=== PATIENT | male | born 2000 | race Two or more races ===

== ENCOUNTER 2023-11-29 21:39 | Emergency (ER) | payer MEDICAID ==
[~2023-11-29] VITALS: Ht 167.6 cm; Wt 95.0 kg
[2023-11-29 21:49] VITALS: TEMP 98.2
[2023-11-29 22:22] LABS: BASOPHILS % (AUTO) 0.3 % (0.0-2.0); EOSINOPHILS % (AUTO) 1.3 % (1.0-6.0); HEMATOCRIT 43.1 % (41-53); HEMOGLOBIN 14.6 g/dL (13.5-17.5); LYMPHOCYTES # (AUTO) 1.4 K/uL (1.0-4.8); LYMPHOCYTES % (AUTO) 11.9 % (22.0-44.0); MEAN CORPUSCULAR HEMOGLOBIN 28.1 pg (26.0-34.0); MEAN CORPUSCULAR HGB CONC 33.7 G/dL (31.0-37.0); MEAN CORPUSCULAR VOLUME 83 fL (80-100); MONOCYTES # (AUTO) 1.1 K/uL (0.1-1.0); MONOCYTES % (AUTO) 8.8 % (2.0-9.0); NEUTROPHILS # (AUTO) 9.4 K/uL (1.8-7.7); NEUTROPHILS % (AUTO) 77.7 % (40.0-70.0); PLATELET COUNT (AUTO) 421 K/uL (150-450); RED BLOOD CELL COUNT(AUTO) 5.18 MIL/uL (4.50-5.90); RED CELL DISTRIBUTION WIDTH 15.6 % (11.5-14.5); WHITE BLOOD COUNT (AUTO) 12.1 K/uL (4.5-11.0)
[2023-11-29 22:34] LABS: ANION GAP 9 mmol/L (8-16); CARBON DIOXIDE 28 mmol/L (22-29); CHLORIDE 99 mmol/L (98-107); CREATININE 0.94 mg/dL (0.60-1.30); GLOMERULAR FILTR. RATE CALC > 60 mL/min (>60); GLUCOSE,RANDOM 139 mg/dL (70-110); LIPASE 46 U/L (16-77); POTASSIUM 4.1 mmol/L (3.5-5.1); SODIUM SERUM 136 mmol/L (136-145); UREA NITROGEN, BLOOD 10 mg/dL (7-18)
[2023-11-29 22:36] LABS: CALCIUM, TOTAL 9.5 mg/dL (8.8-10.5)
[2023-11-29] MEDS: ONDANSETRON HCL 4 MG/2 ML VIAL IVP ONE (22:51)
[2023-11-29] MEDS: KETOROLAC TROMETHAMINE 30 MG/ML VIAL IVP ONE (22:52)
[2023-11-29 23:04] VITALS: BP 132/71; PULSE 64; RESP 18
[2023-11-29 23:08] LABS: ALANINE AMINOTRANSFERASE 32 U/L (12-78); ALBUMIN 3.4 g/dL (3.4-5.0); ALKALINE PHOSPHATASE 77 U/L (46-116); ASPARTATE AMINOTRANSFERASE 24 U/L (15-37); BILIRUBIN,TOTAL 0.3 mg/dL (0.1-1.0); TOTAL PROTEIN, SERUM 8.8 g/dL (6.4-8.2)
[2023-11-30] MEDS ORDERED: IBUP-1492 PO (00:46)
[2023-11-30] MEDS ORDERED: ONDA-104 PO (00:46)
== END 2023-11-30 00:57 | disposition home or self-care (01) ==
LOC: EMS 21:39
DX: K80.20 Calculus of gallbladder without cholecystitis without obstruction (principal)
CPT/HCPCS: 99285; 96374; 96375; 80048; 80076; 83690; 85025; 36415; 76700; J1885; J2405

== ENCOUNTER 2024-02-14 00:42 | Emergency (ER) | payer SELFPAY ==
[~2024-02-14] VITALS: Ht 167.6 cm; Wt 77.0 kg
[~2024-02-14 00:42] MED LIST: IBUP-1492 PO; ONDA-104 PO
[2024-02-14] MEDS: PHENOBARB/HYOSCY/ATROPINE/SCOP 5 ML UDCUP ELIXIR PO ONE (02:31)
[2024-02-14] MEDS: OMEPRAZOLE 20 MG CAPSULE PO ONE (02:31)
[2024-02-14] MEDS: ONDANSETRON HCL 4 MG/2 ML VIAL IM ONE (02:31)
[2024-02-14] MEDS: MAG HYDROX/ALUMINUM HYD/SIMETH ES 30 ML SUSPENSION UDCUP PO ONE (02:31)
[2024-02-14] MEDS: MORPHINE SULFATE 4 MG/ML SYRINGE IM ONE (02:32)
[2024-02-14 03:30] VITALS: BP 133/78; PULSE 66; RESP 20; TEMP 97.3
[2024-02-14 03:30] LABS: APPEARANCE,URINE CLEAR (CLEAR); BILIRUBIN,URINE NEGATIVE (NEGATIVE); COLOR,URINE YELLOW (YELLOW); GLUCOSE, URINE (UA) NEGATIVE (NEGATIVE); KETONES,URINE =>150 mg/dL (NEGATIVE); LEUKOCYTE ESTERASE ,URINE NEGATIVE (NEGATIVE); NITRATE,URINE NEGATIVE (NEGATIVE); OCCULT BLOOD,URINE NEGATIVE (NEGATIVE); PROTEIN,URINE 30-70 mg/dL (NEGATIVE); SPECIFIC GRAVITIY, URINE 1.033 (1.003-1.030)
[2024-02-14 04:07] LABS: BASOPHILS % (AUTO) 0.2 % (0.0-2.0); HEMATOCRIT 47.5 % (41-53); HEMOGLOBIN 15.6 g/dL (13.5-17.5); LYMPHOCYTES # (AUTO) 1.5 K/uL (1.0-4.8); LYMPHOCYTES % (AUTO) 12.3 % (22.0-44.0); MEAN CORPUSCULAR HGB CONC 32.8 G/dL (31.0-37.0); MEAN CORPUSCULAR VOLUME 85 fL (80-100); MONOCYTES # (AUTO) 0.7 K/uL (0.1-1.0); MONOCYTES % (AUTO) 5.4 % (2.0-9.0); NEUTROPHILS # (AUTO) 9.9 K/uL (1.8-7.7); NEUTROPHILS % (AUTO) 81.1 % (40.0-70.0); PLATELET COUNT (AUTO) 449 K/uL (150-450); RED BLOOD CELL COUNT(AUTO) 5.58 MIL/uL (4.50-5.90); RED CELL DISTRIBUTION WIDTH 15.5 % (11.5-14.5); WHITE BLOOD COUNT (AUTO) 12.2 K/uL (4.5-11.0)
[2024-02-14 04:12] LABS: ANION GAP 9 mmol/L (8-16); CALCIUM, TOTAL 9.8 mg/dL (8.8-10.5); CARBON DIOXIDE 30 mmol/L (22-29); CHLORIDE 97 mmol/L (98-107); CREATININE 0.85 mg/dL (0.60-1.30); GLOMERULAR FILTR. RATE CALC > 60 mL/min (>60); GLUCOSE,RANDOM 121 mg/dL (70-110); LIPASE 44 U/L (16-77); POTASSIUM 4.5 mmol/L (3.5-5.1); SODIUM SERUM 136 mmol/L (136-145); UREA NITROGEN, BLOOD 10 mg/dL (7-18)
[2024-02-14 04:18] LABS: ALBUMIN 3.9 g/dL (3.4-5.0); BILIRUBIN,DIRECT 0.2 mg/dL (0.00-0.20); BILIRUBIN,TOTAL 0.6 mg/dL (0.1-1.0); TOTAL PROTEIN, SERUM 9.4 g/dL (6.4-8.2)
[2024-02-14] MEDS ORDERED: ACET-2080 PO (04:20)
[2024-02-14] MEDS ORDERED: OMEP20 PO (04:20)
[2024-02-14] MEDS ORDERED: MAG30ORA11 PO (04:20)
[2024-02-14] MEDS ORDERED: ONDA-104 PO (04:20)
== END 2024-02-14 07:41 | disposition home or self-care (01) ==
LOC: EMS 00:43
DX: K29.70 Gastritis, unspecified, without bleeding (principal); F12.90 Cannabis use, unspecified, uncomplicated
CPT/HCPCS: 99284; 80048; 80076; 81003; 83690; 85025; 36415; 96372; J2270; J2405

== ENCOUNTER 2024-07-15 17:23 | Inpatient (IN) | payer SELFPAY ==
[~2024-07-15] VITALS: Ht 167.6 cm; Wt 105.0 kg
[~2024-07-15 17:23] MED LIST changes: +ACET-2080 PO; +MAG30ORA11 PO; +OMEP20 PO
[2024-07-15 17:56] LABS: BASOPHILS % (AUTO) 0.1 % (0.0-2.0); EOSINOPHILS % (AUTO) 0.5 % (1.0-6.0); HEMATOCRIT 42.9 % (41-53); HEMOGLOBIN 14.5 g/dL (13.5-17.5); LYMPHOCYTES # (AUTO) 1.3 K/uL (1.0-4.8); LYMPHOCYTES % (AUTO) 9.3 % (22.0-44.0); MEAN CORPUSCULAR HEMOGLOBIN 27.7 pg (26.0-34.0); MEAN CORPUSCULAR HGB CONC 33.8 G/dL (31.0-37.0); MEAN CORPUSCULAR VOLUME 82 fL (80-100); MONOCYTES # (AUTO) 0.9 K/uL (0.1-1.0); MONOCYTES % (AUTO) 6.5 % (2.0-9.0); NEUTROPHILS % (AUTO) 83.6 % (40.0-70.0); PLATELET COUNT (AUTO) 394 K/uL (150-450); RED BLOOD CELL COUNT(AUTO) 5.23 MIL/uL (4.50-5.90); RED CELL DISTRIBUTION WIDTH 14.1 % (11.5-14.5); WHITE BLOOD COUNT (AUTO) 14.3 K/uL (4.5-11.0)
[2024-07-15 18:03] LABS: ANION GAP 6 mmol/L (8-16); CALCIUM, TOTAL 9.4 mg/dL (8.8-10.5); CARBON DIOXIDE 30 mmol/L (22-29); CHLORIDE 100 mmol/L (98-107); CREATININE 0.89 mg/dL (0.60-1.30); GLOMERULAR FILTR. RATE CALC > 60 mL/min (>60); GLUCOSE,RANDOM 115 mg/dL (70-110); POTASSIUM 4.1 mmol/L (3.5-5.1); SODIUM SERUM 136 mmol/L (136-145); UREA NITROGEN, BLOOD 15 mg/dL (7-18)
[2024-07-15 18:09] LABS: ALANINE AMINOTRANSFERASE 35 U/L (12-78); ALBUMIN 3.8 g/dL (3.4-5.0); ALKALINE PHOSPHATASE 83 U/L (46-116); ASPARTATE AMINOTRANSFERASE 22 U/L (15-37); BILIRUBIN,TOTAL 0.5 mg/dL (0.1-1.0); LIPASE 51 U/L (16-77); TOTAL PROTEIN, SERUM 8.3 g/dL (6.4-8.2)
[2024-07-15 23:43] LABS: BASOPHILS % (AUTO) 0.3 % (0.0-2.0); EOSINOPHILS % (AUTO) 0.1 % (1.0-6.0); HEMATOCRIT 43.2 % (41-53); HEMOGLOBIN 14.7 g/dL (13.5-17.5); LYMPHOCYTES # (AUTO) 1.6 K/uL (1.0-4.8); LYMPHOCYTES % (AUTO) 11.7 % (22.0-44.0); MEAN CORPUSCULAR HEMOGLOBIN 27.8 pg (26.0-34.0); MEAN CORPUSCULAR VOLUME 82 fL (80-100); MONOCYTES # (AUTO) 1.1 K/uL (0.1-1.0); MONOCYTES % (AUTO) 7.9 % (2.0-9.0); NEUTROPHILS # (AUTO) 10.8 K/uL (1.8-7.7); PLATELET COUNT (AUTO) 426 K/uL (150-450); RED BLOOD CELL COUNT(AUTO) 5.29 MIL/uL (4.50-5.90); RED CELL DISTRIBUTION WIDTH 14.2 % (11.5-14.5); WHITE BLOOD COUNT (AUTO) 13.6 K/uL (4.5-11.0)
[2024-07-15 23:49] LABS: ANION GAP 12 mmol/L (8-16); CALCIUM, TOTAL 9.5 mg/dL (8.8-10.5); CARBON DIOXIDE 25 mmol/L (22-29); CHLORIDE 98 mmol/L (98-107); CREATININE 0.83 mg/dL (0.60-1.30); GLOMERULAR FILTR. RATE CALC > 60 mL/min (>60); GLUCOSE,RANDOM 102 mg/dL (70-110); POTASSIUM 3.2 mmol/L (3.5-5.1); SODIUM SERUM 135 mmol/L (136-145); UREA NITROGEN, BLOOD 15 mg/dL (7-18)
[2024-07-15] MEDS: SODIUM CHLORIDE 0.9% 1,000 ML IV ONE (23:52)
[2024-07-15] MEDS: FAMOTIDINE 20 MG/2 ML VIAL IVP ONE (23:52)
[2024-07-15] MEDS: MORPHINE SULFATE 2 MG/ML SYRINGE IVP ONE (23:53)
[2024-07-15 23:55] LABS: ALANINE AMINOTRANSFERASE 103 U/L (12-78); ALBUMIN 3.9 g/dL (3.4-5.0); ALKALINE PHOSPHATASE 105 U/L (46-116); ASPARTATE AMINOTRANSFERASE 99 U/L (15-37); BILIRUBIN,TOTAL 1.5 mg/dL (0.1-1.0); LIPASE 50 U/L (16-77); TOTAL PROTEIN, SERUM 8.5 g/dL (6.4-8.2)
[2024-07-16] MEDS: MORPHINE SULFATE 2 MG/ML SYRINGE IVP ONE ×3 (02:04→05:48)
[2024-07-16] MEDS: PIPERACILLIN/TAZO 3.375 GM/D5W 50 ML IV ONE (02:04)
[2024-07-16 08:41] LABS: APPEARANCE,URINE CLEAR (CLEAR); BILIRUBIN,URINE NEGATIVE (NEGATIVE); COLOR,URINE YELLOW (YELLOW); GLUCOSE, URINE (UA) NEGATIVE (NEGATIVE); KETONES,URINE NEGATIVE (NEGATIVE); LEUKOCYTE ESTERASE ,URINE NEGATIVE (NEGATIVE); NITRATE,URINE NEGATIVE (NEGATIVE); OCCULT BLOOD,URINE NEGATIVE (NEGATIVE); PH,URINE 6.5 (5.0-8.0); PROTEIN,URINE TRACE mg/dL (NEGATIVE); SPECIFIC GRAVITIY, URINE 1.026 (1.003-1.030); UROBILINOGEN,URINE <=1.0 mg/dL (<=1.0)
[2024-07-16 10:57] VITALS: BP 135/93; PULSE 63; RESP 18; TEMP 98.2; O2SAT 0
[2024-07-16] MEDS ORDERED: IPRATROPIUM BROMIDE 0.5 MG/2.5 ML NEB SOLUTION NEB PRN (13:45)
[2024-07-16] MEDS ORDERED: BISACODYL 10 MG RECTAL RECTAL SUPPOSITORY PR PRN (13:45)
[2024-07-16] MEDS ORDERED: ZOLPIDEM TARTRATE 5 MG TABLET PO PRN (13:45)
[2024-07-16] MEDS ORDERED: ALBUTEROL SULFATE 2.5 MG/0.5 ML NEB SOLUTION NEB PRN (13:45)
[2024-07-16] MEDS ORDERED: ONDANSETRON HCL 4 MG/2 ML VIAL IVP PRN (13:45)
[2024-07-16] MEDS ORDERED: MAGNESIUM HYDROXIDE SUSPENSION 30 ML UDCUP PO PRN (13:45)
[2024-07-16] MEDS ORDERED: ACETAMINOPHEN 325 MG TABLET PO PRN (13:45)
[2024-07-16] MEDS: POTASSIUM CHLORIDE 20 MEQ ER TABLET PO ONE (14:11)
[2024-07-16] MEDS: RINGERS SOLUTION,LACTATED 1,000 ML IV SCH (14:11)
[2024-07-16] MEDS: MORPHINE SULFATE 2 MG/ML SYRINGE IVP PRN (14:12)
[2024-07-16] MEDS: PIPERACILLIN/TAZO 3.375 GM/D5W 50 ML IV SCH (14:37)
[2024-07-16] MEDS: HEPARIN SODIUM,PORCINE 5,000 UNITS/ML VIAL SQ SCH (16:00)
[2024-07-16] MEDS ORDERED: SODIUM CHLORIDE 0.9% 500 ML IV ONE (19:44)
[2024-07-16] MEDS: DOCUSATE SODIUM 100 MG CAPSULE PO SCH (20:06)
[2024-07-16 21:29] VITALS: BP 127/80; PULSE 53; RESP 18; TEMP 98.6; O2SAT 100
[2024-07-17 03:30] VITALS: BP 132/71; PULSE 55; RESP 20; TEMP 97.7; O2SAT 99
[2024-07-17] MEDS ORDERED: PROPOFOL 1% 20 ML VIAL IVP ONE (07:00)
[2024-07-17] MEDS ORDERED: ONDANSETRON HCL 4 MG/2 ML VIAL ONE (07:00)
[2024-07-17] MEDS ORDERED: LIDOCAINE/PF 2% 5 ML VIAL ONE (07:00)
[2024-07-17] MEDS ORDERED: SUGAMMADEX SODIUM 200 MG/2 ML VIAL IVP ONE (07:00)
[2024-07-17] MEDS ORDERED: GLYCOPYRROLATE 0.2 MG/ML VIAL ONE (07:00)
[2024-07-17] MEDS ORDERED: DEXAMETHASONE SOD PHOS 4 MG/ML VIAL ONE (07:00)
[2024-07-17] MEDS ORDERED: KETOROLAC TROMETHAMINE 60 MG/2 ML VIAL IM ONE (07:00)
[2024-07-17] MEDS ORDERED: ROCURONIUM BROMIDE 10 MG/ML 5 ML VIAL ONE (07:00)
[2024-07-17] MEDS ORDERED: CeFAZolin SODIUM 1 GM VIAL ONE (07:00)
[2024-07-17] MEDS ORDERED: FentaNYL CITRATE PF 100 MCG/2 ML VIAL ONE ×2 (07:00→11:20)
[2024-07-17] MEDS ORDERED: MIDAZOLAM HCL 2 MG/2 ML VIAL ONE (07:00)
[2024-07-17] MEDS: PANTOPRAZOLE SODIUM 40 MG/VIAL IVP SCH (08:40)
[2024-07-17 09:00] VITALS: BP 140/96; PULSE 62; RESP 18; TEMP 98.6; O2SAT 100
[2024-07-17] MEDS ORDERED: RINGERS SOLUTION,LACTATED 1,000 ML IV ONE (09:24)
[2024-07-17] MEDS ORDERED: SODIUM CHLORIDE 0.9% 0 ML ONE (10:01)
[2024-07-17] MEDS: BUPIVACAINE 0.25%/EPI 1:200,000/PF 10 ML VIAL ONE (10:43)
[2024-07-17] MEDS ORDERED: KETOROLAC TROMETHAMINE 30 MG/ML VIAL ONE (11:15)
[2024-07-17] MEDS: FentaNYL CITRATE PF 100 MCG/2 ML VIAL IVP PRN (11:21)
[2024-07-17] MEDS: HYDROmorphone HCL 2 MG/ML SYRINGE IVP PRN (11:28)
[2024-07-17] MEDS ORDERED: FentaNYL CITRATE PF 100 MCG/2 ML VIAL IVP ONE (11:30)
[2024-07-17 12:03] VITALS: BP 142/71; PULSE 70; RESP 17; TEMP 98.6; O2SAT 99
[2024-07-17 20:12] VITALS: BP 130/86; PULSE 81; RESP 18; TEMP 98.2; O2SAT 98
[2024-07-18] MEDS ORDERED: ONDANSETRON HCL 4 MG/2 ML VIAL ONE (06:24)
[2024-07-18] MEDS ORDERED: SUGAMMADEX SODIUM 200 MG/2 ML VIAL IVP ONE (06:24)
[2024-07-18] MEDS ORDERED: ROCURONIUM BROMIDE 10 MG/ML 5 ML VIAL ONE (06:24)
[2024-07-18] MEDS ORDERED: PROPOFOL 1% 20 ML VIAL IVP ONE (06:24)
[2024-07-18] MEDS ORDERED: GLUCAGON,HUMAN RECOMBINANT 1 MG VIAL ONE (06:24)
[2024-07-18] MEDS ORDERED: MIDAZOLAM HCL 2 MG/2 ML VIAL ONE (06:24)
[2024-07-18] MEDS ORDERED: DEXAMETHASONE SOD PHOS 4 MG/ML VIAL ONE (06:24)
[2024-07-18] MEDS ORDERED: LIDOCAINE/PF 2% 5 ML VIAL ONE (06:24)
[2024-07-18] MEDS ORDERED: FentaNYL CITRATE PF 100 MCG/2 ML VIAL ONE (06:24)
[2024-07-18 09:27] VITALS: BP 130/73; PULSE 54; RESP 20; TEMP 97.3; O2SAT 98
[2024-07-18] MEDS ORDERED: IOTHALAMATE MEGLUMINE 600 MG/ML 50 ML VIAL IVP ONE (10:03)
[2024-07-18] MEDS ORDERED: SODIUM CHLORIDE 0.9% 1,000 ML ONE (13:19)
[2024-07-18] MEDS ORDERED: EPINEPHrine 1:10,000 [1 MG/10 ML] SYRINGE ONE (15:35)
[2024-07-18] MEDS ORDERED: FLUMAZENIL 0.1 MG/ML 5 ML VIAL IVP ONE (15:35)
[2024-07-18] MEDS ORDERED: NALOXONE HCL 0.4 MG/ML VIAL ONE (15:35)
[2024-07-18] MEDS ORDERED: DiphenhydrAMINE HCL 50 MG/ML VIAL ONE (15:36)
[2024-07-18] MEDS ORDERED: ATROPINE SULFATE 0.1 MG/ML 10 ML SYRINGE IVP ONE (15:36)
[2024-07-18] MEDS ORDERED: SODIUM TETRADECYL SULFATE 3% 60 MG/2 ML VIAL IVP ONE (15:36)
[2024-07-18] MEDS ORDERED: MEPERIDINE-PF 25 MG/ML VIAL IVP PRN (18:00)
[2024-07-18] MEDS ORDERED: FentaNYL CITRATE PF 100 MCG/2 ML VIAL IVP PRN (18:00)
[2024-07-18] MEDS ORDERED: HYDROmorphone HCL 2 MG/ML SYRINGE IVP PRN (18:00)
[2024-07-18 19:23] VITALS: BP 134/70; PULSE 58; RESP 18; TEMP 98.2; O2SAT 100
[2024-07-18] MEDS ORDERED: OXYGEN THERAPY IH SCH (20:00)
[2024-07-18] MEDS: HYDROCODONE/ACETAMINOPHEN 5-325 MG TABLET PO PRN (21:57)
[2024-07-19 04:28] VITALS: BP 131/75; PULSE 54; RESP 18; TEMP 97.6; O2SAT 100
[2024-07-19 08:20] VITALS: BP 153/84; PULSE 53; RESP 18; TEMP 97.7; O2SAT 100
[2024-07-19] MEDS ORDERED: AMOX-457 PO (15:19)
[2024-07-19 15:50] VITALS: BP 139/76; PULSE 79; RESP 20; TEMP 98.5; O2SAT 100
== END 2024-07-19 17:35 | disposition home or self-care (01) | DRG 419 ==
LOC: EMS 17:23 → EDH 07-16 06:17 → UNDOADMIN 07-16 08:04 → 4E 07-16 09:30 → EDH 07-16 09:30
PROVIDERS: ADMIT Hospitalist; ATTEND Hospitalist
PROC: 0FT44ZZ Resection of Gallbladder, Percutaneous Endoscopic Approach (ICD-10-PCS; principal; 2024-07-17 10:15)
PROC: 0FC98ZZ Extirpation of Matter from Common Bile Duct, Via Natural or Artificial Opening Endoscopic (ICD-10-PCS; 2024-07-18)
PROC: BF101ZZ Fluoroscopy of Bile Ducts using Low Osmolar Contrast (ICD-10-PCS; 2024-07-18)
DX: K80.62 Calculus of gallbladder and bile duct with acute cholecystitis without obstruction (principal); K82.8 Other specified diseases of gallbladder
CPT/HCPCS: 74181; 76705; 80048; 80076; 81003; 83690; 84132; 85025; 87040; 88304; 99285; G0378; J0171; J0461; J0690; J1100; J1171; J1200; J1610; J1644; J1885; J2250; J2270; J2310; J2405; J2470; J2543; J2704; J3010; J3490; J7030; J7040; J7120; Q9961

== ENCOUNTER 2025-02-01 15:03 | Emergency (ER) | payer MEDICAID, OTHER ==
[~2025-02-01] VITALS: Ht 170.2 cm; Wt 81.8 kg
[~2025-02-01 15:03] MED LIST changes: +AMOX-457 PO; +OMEP-148 PO; -OMEP20 PO
[2025-02-01 15:11] VITALS: TEMP 98
[2025-02-01] MEDS: BACITRACIN 0.9 GM PACKET OINTMENT TP ONE (16:59)
[2025-02-01] MEDS: LIDOCAINE 1% 10 ML VIAL SQ ONE (16:59)
[2025-02-01] MEDS: CEPHALEXIN MONOHYDRATE 500 MG CAPSULE PO ONE (16:59)
[2025-02-01] MEDS: PERTUSS(ACELL),DIPH,TET/PF 0.5 ML SYRINGE [ADULT] IM. ONE (17:01)
[2025-02-01] MEDS ORDERED: DOXY-354 PO (17:46)
[2025-02-01] MEDS ORDERED: ACET-2080 PO (17:46)
[2025-02-01] MEDS ORDERED: CEPH-558 PO (17:46)
[2025-02-01 18:28] VITALS: BP 118/70; PULSE 75; RESP 18; O2SAT 99
== END 2025-02-01 18:29 | disposition home or self-care (01) ==
LOC: EMS 15:03
DX: S66.323A Laceration of extensor muscle, fascia and tendon of left middle finger at wrist and hand level, initial encounter (principal); Z90.49 Acquired absence of other specified parts of digestive tract; Z79.899 Other long term (current) drug therapy; W31.1XXA Contact with metalworking machines, initial encounter; Y93.89 Activity, other specified; Y92.89 Other specified places as the place of occurrence of the external cause; Y99.8 Other external cause status
CPT/HCPCS: 99283; 90715; 90471; 12001; J3490